=== PATIENT | female | born 1975 | race Two or more races ===

== ENCOUNTER 2016-07-19 17:34 | Emergency (ER) | payer OTHER ==
[~2016-07-19] VITALS: Ht 170.2 cm; Wt 81.6 kg
--- NOTE | 2016-07-19 17:59 | ER.PDOC ---
General Chief Complaint: General Complaint Stated Complaint: ABD PAIN Time seen by MD: 15:58 Source: patient Exam Limitations: no limitations History of Present Illness Initial Comments ruq abd pain getting worse over several weeks, associated with food and night sweats, central abd Radiation: no radiation Associated Symptoms: denies symptoms Exacerbated by: nothing Relieved By: nothing Allergies: Coded Allergies: No Known Allergies (Unverified , 07/19/16) Vital Signs First Vital Signs Date Time Temp Pulse Resp B/P Pulse Ox O2 Delivery O2 Flow Rate FiO2 07/19/16 17:50 99.4 99 20 98 07/19/16 17:54 147/98 Last Vital Signs Date Time Temp Pulse Resp B/P Pulse Ox O2 Delivery O2 Flow Rate FiO2 07/19/16 17:54 99.4 99 20 147/98 98 Past Medical History Medical History: no pertinent history Surgical History: LMP (females 10-50): 3 weeks Social History Smoking: cigarettes Alcohol Use: none Drug Use: none Reviewed Nursing Reviewed: Vital Signs, Abn. Noted Nursing Assessment Constitutional: no symptoms reported EENTM: no symptoms reported Respiratory: no symptoms reported Cardiovascular: no symptoms reported Gastrointestinal: see HPI abdominal pain (severe, ruq and epigastricpain) Genitourinary: no symptoms reported Musculoskeletal: no symptoms reported Skin: no symptoms reported Psychiatric/Neurological: no symptoms reported Endocrine: no symptoms reported Hematologic/Lymphatic: no symptoms reported All Other Systems: Reviewed and Negative Physical Exam General Appearance: Anxious, Mild Distress HEENT: PERRL/EOMI, Normal ENT Inspection, TMs Normal, Pharynx Normal Neck: Non-Tender, Full Range of Motion, Supple, Normal Inspection Respiratory: chest non-tender, lungs clear, normal breath sounds, no respiratory distress, no accessory muscle use Cardiovascular: Normal Peripheral Pulses, Regular Rate, Rhythm, No Edema, No Gallop, No JVD, No Murmur Gastrointestinal: Normal Bowel Sounds, Tenderness, Other (murphys sign positive ) Back: Normal Inspection, No CVA Tenderness, No Vertebral Tenderness Extremities: Normal Range of Motion, Non-Tender, Normal Inspection, No Pedal Edema, No Calf Tenderness, Normal Capillary Refill, Pelvis Stable 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 Course Blood Pressure Systolic: 147 Blood Pressure Diastolic: 98 Blood Pressure Mean: 114 Departure Time of Disposition: 19:14 Disposition: 01 HOME, SELF-CARE Impression: Primary Impression: Abdominal pain of unknown etiology Condition: Stable Patient Instructions: Abdominal Pain Referrals: PCP,UNKNOWN (PCP) PRIMARY CARE PROVIDER Additional Instructions: bentyln 20mg QID as needed for abdominal Cramps #30 See pcp, consider referral to GI ASPEN HORTON MD Jul 19, 2016 17:59
--- NOTE | 2016-07-19 18:09 | NUR ---
US LIEN, US TECH NOTIFIED OF US IN ER.
[2016-07-19 18:21] LABS: BASOPHIL # 0.1 10^3/uL (0.0-0.1); BASOPHIL % 0.5 % (0.0-0.2); EOSINOPHIL # 0.2 10^3/uL (0.0-0.2); EOSINOPHIL % 1.6 % (0.0-5.0); HEMATOCRIT 41.4 % (36.0-46.0); HEMOGLOBIN 13.9 g/dL (12.0-15.0); LYMPHOCYTES # 3.6 10^3/uL (1.0-4.8); MEAN CELL HGB 30.4 pg (26-34); MEAN CELL HGB CONCENTRATION 33.6 g/dL (33-37); MEAN CORP VOLUME 90.6 fL (78-100); MEAN PLATELET VOLUME 11.5 fL (7.8-11.0); MONOCYTES # 0.6 10^3/uL (0.3-0.8); MONOCYTES % 5.8 % (5.0-12.0); NEUTROPHILS % 57.5 % (41.0-85.0); RED CELL DISTRIBUTION WIDTH 13.1 % (11.5-14.5); WHITE BLOOD CELL 10.5 10^3/uL (4.5-11.0)
[2016-07-19 18:40] LABS: CALCIUM 8.9 mg/dL (8.4-10.5); CARBON DIOXIDE 23.7 mmol/L (20.0-32)
--- NOTE | 2016-07-19 18:45 | NUR ---
UA: Pt ambulated to bathroom for UA. 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
[2016-07-19 18:49] LABS: BILIRUBIN,URINE NEGATIVE (NEGATIVE); UROBILINOGEN,URINE NORMAL (NEGATIVE)
[2016-07-19 18:53] LABS: APPEARANCE,URINE SLIGHTLY HAZY (CLEAR); UA COLOR YELLOW (YELLOW)
--- NOTE | 2016-07-19 19:01 | NUR ---
ULTRASOUND PATIENT TO ULTRASOUND
[2016-07-19 19:13] LABS: WBC,URINE 0-2 WBC/HPF (0-2)
--- NOTE | 2016-07-19 19:34 | DIREP ---
PROCEDURE:US ABDOMEN LIMITED (SINGLE ORGAN - QUAD) COMPARISON:None. INDICATIONS:ruq pain TECHNIQUE:High resolution sonographic examination was performed of the abdomen. FINDINGS: CBD:3.91 mm GALL BLADDER WALL:The gallbladder was contracted. RIGHT KIDNEY: Length:10.55 cm Height:5.60 cm Width:4.86 cm PANCREAS:Not well visualized due to overlying bowel gas. LIVER:Normal size and echogenicity. No significant masses. BILIARY:The gallbladder was contracted. There are no stones. The common bile duct measures 4 mm in diameter. OTHER:Negative. CONCLUSION:The gallbladder was contracted. No other abnormalities. Dictated by: Sreekanth Morales M.D. on 07/19/2016 at 07:32 PM
--- NOTE | 2016-07-19 20:05 | NUR ---
CT: Pt to Ct.
--- NOTE | 2016-07-19 21:01 | DIREP ---
PROCEDURE:CT ABD/PELVIS WITHOUT CONTRAST TECHNIQUE:Axial cuts were obtained from the dome of the diaphragm to the ischial tuberosities. No intravenous contrast was given. The images were viewed at lung and soft tissue settings. Sagittal and coronal reconstructions are provided. COMPARISON:None. INDICATIONS:Upper Abdominal Pain, Hematuria FINDINGS: LOWER CHEST:The lung bases are clear. LIVER:Normal. BILIARY:Normal. PANCREAS:Normal. SPLEEN:Normal. URINARY TRACT:Normal. ADRENALS:Normal. AORTA/VASCULAR:Normal. RETROPERITONEUM:Normal. BOWEL/MESENTERY:Normal. The appendix is clearly seen and is normal. ABDOMINAL WALL:Normal. PELVIS:Normal. BONES:Vacuum changes L4-5 disc. OTHER:Normal. CONCLUSION: 1. No explanation for patient's hematuria. 2. Degenerative disc disease L4-5. Dictated by: Sreekanth Morales M.D. on 07/19/2016 at 08:54 PM
[2016-07-19 21:33] VITALS: BP 140/88
== END 2016-07-19 21:30 | disposition home or self-care (01) ==
LOC: ER 17:34
DX: R10.11 Right upper quadrant pain (principal); R10.13 Epigastric pain; F17.210 Nicotine dependence, cigarettes, uncomplicated
CPT/HCPCS: 36415; 74176; 76705; 80053; 81000; 81025; 82150; 83690; 85025; 86677; 87086; 99285